=== PATIENT | female | born 1950 | race Caucasian/White ===

== ENCOUNTER → 2017-03-07 | Outpatient (CLI) | payer BC ==
--- NOTE | 2017-03-08 19:32 | Diagnostic Imaging Report ---
Digital mammogram bilateral screening with tomosynthesis. This study was compared to the prior exams of 02/27/2016, 02/12/2015, and 03/04/2014. At this time, there are no current complaints. The current study was also evaluated with a Computer Aided Detection (CAD) system. FINDINGS: The fibroglandular tissue in both breasts is heterogeneously dense. This does limit the sensitivity of this exam. When compared to the prior study, there does not appear to have been any significant change. There is no primary or secondary sign of malignancy noted. The 3D tomographic views also fail to show any sign of malignancy. IMPRESSION: There is no evidence of malignancy. ACR BI-RADS Category 1: Negative. Result letter will be mailed to the patient. Note: At least 10% of breast cancer is not imaged by mammography. Dictated on workstation # [id number]
== END ==
LOC: RAD 15:38
PROVIDERS: ATTEND Internal Medicine
DX: Z12.31 Encounter for screening mammogram for malignant neoplasm of breast (principal)
CPT/HCPCS: 77067

== ENCOUNTER 2018-05-10 05:32 | Outpatient (CLI) | payer MEDICARE ==
[~2018-05-10] VITALS: Ht 160 cm; Wt 58.5 kg
[2018-05-10] MEDS ORDERED: METH500T5 PO (11:58)
[2018-05-10] MEDS ORDERED: CALC600T12 PO (11:58)
[2018-05-10] MEDS ORDERED: CART1TAB4 PO (11:58)
[2018-05-10] MEDS ORDERED: LOSA1TAB26 PO (11:58)
[2018-05-10] MEDS ORDERED: MULT-884 PO (11:58)
[2018-05-10] MEDS ORDERED: [UNRECOGNIZED DRUG - CODE] VG (12:04)
[2018-05-10] MEDS ORDERED: CALC-227 PO (12:04)
== END 2018-05-10 12:08 | disposition home or self-care (01) ==
LOC: PREOP 05:32
PROVIDERS: ATTEND Obstetrics & Gynecology
DX: Z01.818 Encounter for other preprocedural examination (principal)

== ENCOUNTER 2018-05-16 06:19 | Day surgery (SDC) | payer MEDICARE ==
[~2018-05-16] VITALS: Ht 160 cm; Wt 58.5 kg
[~2018-05-16 06:19] MED LIST: CALC-227 PO; CALC600T12 PO; CART1TAB4 PO; LOSA1TAB26 PO; METH500T5 PO; MULT-884 PO; [UNRECOGNIZED DRUG - CODE] VG
--- OUTSIDE RECORDS SUMMARY | 2018-05-16 06:23 | XMS REPORT ---
Author Author CELIA ROGERS Organization [facility] Address [address] [place] [address] Care Team Providers Care Croze Machine Operator Name Role Phone GRAHAMRonda CELIA Unavailable PROBLEMS Type Condition ICD9-CM Code HOD17-OD Code Onset Dates Condition Status SNOMED Code Problem Need for prophylactic vaccination and inoculation, Influenza V04.81 Active 756290569 Problem ZOSTAVAX DX V05.8 Active 01201028 Problem DTAP TEST V06.1 Active ALLERGIES No Information ENCOUNTERS Encounter Location Date Diagnosis [facility] [id number] [place] [id number] Mar, Encounter for immunization Z23 [facility] [address] [phone] Apr, Encounter for immunization 23 [facility] [address] [phone] Apr, Encounter for immunization 23 [facility] [id number] [place] [phone] Apr, [facility] [id number] [place] [phone] Apr, [facility] [id number] [place] [phone] Apr, [facility] [address] [address] Apr, [facility] [id number] [place] [phone] Jul, [facility] [id number] [place] [phone] Apr, [facility] [address] 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
--- OUTSIDE RECORDS SUMMARY | 2018-05-16 06:23 | XMS REPORT | Continuity of Care Document ---
Author Author [facility] Address Unknown Phone Unavailable Allergies Active Description Code Type Severity Reaction Onset Reported/Identified Relationship to Patient Clinical Status Yes No Known Drug Allergies [id number] Drug Allergy Unknown N/A 01/29/2011 Medications There is no data. Problems Date Dx Coded Attending Type Code Diagnosis Diagnosed By 04/28/2012 V04.81 FLU DX (3 YRS AND ABOVE, IM) 04/28/2012 SOPHIE BUTTERFIELD, RAFA A V04.81 FLU DX (3 YRS AND ABOVE, IM) 04/28/2012 [facility] [employer], RAFA A V04.81 FLU DX (3 YRS AND ABOVE, IM) 08/09/2012 V05.8 ZOSTAVAX DX 08/09/2012 [facility] [employer], RAFA A V05.8 ZOSTAVAX DX 08/09/2012 [facility] [employer], RAFA A V05.8 ZOSTAVAX DX 05/04/2013 [facility] [employer], RAFA A V06.1 TDAP DX 05/04/2013 SOPHIE BUTTERFIELD, RAFA A V06.1 TDAP DX 03/04/2015 GALE SANTIAGO, VIJAY Beatty Ot V76.12 02/27/2016 Ot 455.0 INT HEMORRHOID W/O COMPL 02/27/2016 Ot 455.3 EXT HEMORRHOID W/O COMPL 02/27/2016 Ot 562.10 DIVERTICULOSIS COLON (W/O MENT OF HEMORR 02/27/2016 Ot 564.00 UNSPEC CONSTIPATION 02/27/2016 Ot 787.99 OTHER GI SYSTEM SYMPTOMS 02/27/2016 Ot V76.12 OTH SCREEN MAMMO-MALIGN NEOPLASM OF [place]ENS 02/27/2016 Ot V76.12 OTH SCREEN MAMMO-MALIGN NEOPLASM OF [place] 02/27/2016 MARINE HASKINS DO Ot V76.12 OTH SCREEN MAMMO-MALIGN NEOPLASM OF [place] 02/27/2016 HASKINS DO, MARINE C Ot 795.00 ABNORMAL GLANDULAR PAPANICOLAOU SMEAR OF 02/27/2016 DIVINE POON MARINE C Ot V49.81 ASYMPT POSTMENOPAUSAL STATUS (AGE-RELATE 02/27/2016 VIJAY BEASLEY MD Ot V76.12 OTH SCREEN MAMMO-MALIGN NEOPLASM OF [place] 02/27/2016 VIJAY BEASLEY MD Ot V76.12 OTH SCREEN MAMMO-MALIGN NEOPLASM OF [place] 03/01/2016 VIJAY BEASLEY MD Ot Z12.31 ENCNTR SCREEN MAMMOGRAM FOR MALIGNANT NE 03/01/2016 VIJAY BEASLEY MD Ot Z12.31 ENCNTR SCREEN MAMMOGRAM FOR MALIGNANT NE 03/04/2016 VIJAY BEASLEY MD Ot Z12.31 ENCNTR SCREEN MAMMOGRAM FOR MALIGNANT NE 03/12/2016 VIJAY BEASLEY MD Ot Z12.31 ENCNTR SCREEN MAMMOGRAM FOR MALIGNANT NE 03/07/2017 Ot V76.12 OTH SCREEN MAMMO-MALIGN NEOPLASM OF [place]ENS 03/07/2017 MAIRNE HASKINS DO Ot V76.12 OTH SCREEN MAMMO-MALIGN NEOPLASM OF [place] 03/07/2017 DIVINE POON MARINE C Ot 795.00 ABNORMAL GLANDULAR PAPANICOLAOU SMEAR OF 03/07/2017 JESSIE HASKINS DOA C Ot V49.81 ASYMPT POSTMENOPAUSAL STATUS (AGE-RELATE 03/07/2017 VIJAY BEASLEY MD Ot V76.12 OTH SCREEN MAMMO-MALIGN NEOPLASM OF [place] 03/07/2017 VIJAY BEASLEY MD Ot V76.12 OTH SCREEN MAMMO-MALIGN NEOPLASM OF [place]ENS 03/07/2017 VIJAY BEASLEY MD Ot Z12.31 ENCNTR SCREEN MAMMOGRAM FOR MALIGNANT NE 03/08/2017 VIJAY BEASLEY MD Ot Z12.31 ENCNTR SCREEN MAMMOGRAM FOR MALIGNANT NE 03/22/2017 VIJAY BEASLEY MD Ot Z12.31 ENCNTR SCREEN MAMMOGRAM FOR MALIGNANT NE 03/07/2018 MARINE HASKINS DO Ot V76.12 OTH SCREEN MAMMO-MALIGN NEOPLASM OF [place] 03/07/2018 DIVINE POON MARINE C Ot 795.00 ABNORMAL GLANDULAR PAPANICOLAOU SMEAR OF 03/07/2018 MARINE HASKINS DO Ot V49.81 ASYMPT POSTMENOPAUSAL STATUS (AGE-RELATE 03/07/2018 VIJAY BEASLEY MD Ot V76.12 OTH SCREEN MAMMO-MALIGN NEOPLASM OF [place] 03/07/2018 VIJAY BEASLEY MD Ot V76.12 OTH SCREEN MAMMO-MALIGN NEOPLASM OF [place] 03/07/2018 VIJAY BEASLEY MD Ot Z12.31 ENCNTR SCREEN MAMMOGRAM FOR MALIGNANT NE 03/07/2018 VIJAY BEASLEY MD, Ot Z12.31 ENCNTR SCREEN MAMMOGRAM FOR MALIGNANT NE 03/07/2018 HASKINS DO, MARINE C Ot V76.12 OTH SCREEN MAMMO-MALIGN NEOPLASM OF [place] 03/07/2018 HASKINS DO, MARINE C Ot 795.00 ABNORMAL GLANDULAR PAPANICOLAOU SMEAR OF 03/07/2018 HASKINS DO, MARINE C Ot V49.81 ASYMPT POSTMENOPAUSAL STATUS (AGE-RELATE 03/07/2018 VIJAY BEASLEY MD Ot V76.12 OTH SCREEN MAMMO-MALIGN NEOPLASM OF [place] 03/07/2018 VIJAY BEASLEY MD Ot V76.12 OTH SCREEN MAMMO-MALIGN NEOPLASM OF [place] 03/07/2018 VIJAY BEASLEY MD Ot Z12.31 ENCNTR SCREEN MAMMOGRAM FOR MALIGNANT NE 03/07/2018 VIJAY BEASLEY MD Ot Z12.31 ENCNTR SCREEN MAMMOGRAM FOR MALIGNANT NE 03/09/2018 HASKINS DO, MARINE C Ot V76.12 OTH SCREEN MAMMO-MALIGN NEOPLASM OF [place] 03/09/2018 HASKINS DO, MARINE C Ot 795.00 ABNORMAL GLANDULAR PAPANICOLAOU SMEAR OF 03/09/2018 HASKINS DO MARINE C Ot V49.81 ASYMPT POSTMENOPAUSAL STATUS (AGE-RELATE 03/09/2018 VIJAY BEASLEY MD Ot V76.12 OTH SCREEN MAMMO-MALIGN NEOPLASM OF [place] 03/09/2018 VIJAY BEASLEY MD Ot V76.12 OTH SCREEN MAMMO-MALIGN NEOPLASM OF [place] 03/09/2018 VIJAY BEASLEY MD Ot Z12.31 ENCNTR SCREEN MAMMOGRAM FOR MALIGNANT NE 03/09/2018 VIJAY BEASLEY MD, Ot Z12.31 ENCNTR SCREEN MAMMOGRAM FOR MALIGNANT NE 04/05/2018 VIJAY BEASLEY MD, Ot Z12.31 ENCNTR SCREEN MAMMOGRAM FOR MALIGNANT NE Procedures There is no data. Results There is no data. Encounters ACCT No. Visit Date/Time Discharge Status Pt. Type Provider Facility Loc./Unit Complaint [id number] 04/26/2014 14:31:00 04/26/2014 23:59:59 CLS Outpatient RAFA BARRIOS APRN [id number] 05/04/2013 14:49:00 05/04/2013 23:59:59 CLS Outpatient RAFA BARRIOS APRN [id number] 08/09/2012 09:01:00 08/09/2012 23:59:59 CLS Outpatient [id number] 08/09/2012 11:36:40 RECURRING [id number] 05/10/2018 05:32:00 05/10/2018 12:08:00 DIS Outpatient MARINE HASKINS DO [facility] PREOP HYSTEROSCOPY Jaci Mckeon [id number] 03/09/2018 10:57:00 03/09/2018 23:59:59 CLS Outpatient VIJAY BEASLEY MD [facility] RAD SCREENING [id number] 03/07/2017 15:38:00 03/07/2017 23:59:59 CLS Outpatient VIJAY BEASLEY MD [facility] RAD SCREENING [id number] 02/27/2016 09:39:00 02/27/2016 23:59:59 CLS Outpatient VIJAY BEASLEY MD [facility] RAD SCREENING [id number] 02/12/2015 08:01:00 02/12/2015 23:59:59 CLS Outpatient VIJAY BEASLEY MD [facility] RAD SCREENING [id number] 03/04/2014 10:06:00 03/04/2014 23:59:59 CLS Outpatient VIJAY BEASLEY MD [facility] RAD ROUTINE [id number] 04/20/2013 09:22:00 04/20/2013 23:59:59 CLS Outpatient MARINE HASKINS DO [facility] RAD ATYPICAL GLANDUARY CELLS, MENOPAUSE [id number] 03/02/2013 11:04:00 03/02/2013 23:59:59 CLS Outpatient MARINE HASKINS DO [facility] RAD SCREENING [id number] 01/27/2012 09:00:00 Document Registration [id number] 01/29/2011 05:38:00 Document Registration [id number] 01/25/2011 09:43:00 Document Registration [email or web address] 02/12/2015 08:01:58 ACT Document Registration
--- OUTSIDE RECORDS SUMMARY | 2018-05-16 06:23 | XMS REPORT ---
Author Author RAFA BARRIOS Organization [employer] Address Unknown Phone Unavailable Care Team Providers Care Spot Washer Name Role Phone RAFA BARRIOS CP Unavailable Allergies No Known Allergies Problems Problem Type Condition Code Onset Dates Condition Status Problem DTAP TEST V06.1 Active Problem ZOSTAVAX DX V05.8 Active Problem Need for prophylactic vaccination and inoculation, Influenza V04.81 Active Assessment Encounter for immunization Z23 Active Medications No Known Medications Procedures Procedure Coding System Code Date SINGLE IMMUNIZATION ADMIN CPT-4 85756 Apr 19, 2016 FLUARIX QUAD P-FREE 3 AND UP .50 2015 CPT-4 95138 Apr 19, 2016 Results No Known Results Immunizations Vaccine Administration Date FLUARIX QUAD P-FREE 3 AND UP .50 2015Apr 19, 2016 Summary Purpose [employer] Submission
--- OUTSIDE RECORDS SUMMARY | 2018-05-16 06:23 | XMS REPORT ---
Author Author RAFA BARRIOS Organization [employer] Address Unknown Phone Unavailable Care Team Providers Care Inspector Optical Instrument Name Role Phone RAFA BARRIOS CP Unavailable Allergies No Known Allergies Problems Problem Type Condition Code Onset Dates Condition Status Problem DTAP TEST V06.1 Active Problem ZOSTAVAX DX V05.8 Active Problem Need for prophylactic vaccination and inoculation, Influenza V04.81 Active Assessment Encounter for immunization Z23 Active Medications No Known Medications Procedures Procedure Coding System Code Date SINGLE IMMUNIZATION ADMIN CPT-4 87340 May 06, 2015 FLUARIX QUAD (3 & UP)-GSK-2014 CPT-4 12113 May 06, 2015 Results No Known Results Immunizations Vaccine Administration Date FLUARIX QUAD (3 & UP)-GSK-2014May 06, 2015 Summary Purpose [employer] Submission
[2018-05-16] MEDS ORDERED: LACTATED RINGERS 1,000 ML IV PRN (06:28)
[2018-05-16] MEDS ORDERED: ceFAZolin INJECTION 1,000 MG in NS (IVPB) 50 ML IV ONE (06:30)
[2018-05-16 06:44] VITALS: BP 144/64
[2018-05-16] MEDS ORDERED: SEVOFLURANE (ULTANE) 15 ML INHAL SOLN ONE (06:55)
[2018-05-16] MEDS ORDERED: DEXAMETHASONE 10 MG/ML (DECADRON) 1 ML VIAL ONE (06:56)
[2018-05-16] MEDS ORDERED: LIDOCAINE PF 2% 5 ML (XYLOCAINE) VIAL ONE (06:56)
[2018-05-16] MEDS ORDERED: MIDAZOLAM 2 MG/2 ML (VERSED) VIAL ONE (06:56)
[2018-05-16] MEDS ORDERED: ONDANSETRON 4 MG/2 ML (SDV) Z0FRAN ONE (06:56)
[2018-05-16] MEDS ORDERED: proPOfol 200 MG/20 ML (DIPRIVAN) VIAL IV ONE (06:56)
[2018-05-16] MEDS ORDERED: fentaNYL INJECTION 100 MCG/2 ML AMP ONE (06:57)
[2018-05-16] MEDS ORDERED: CATHETER FLUSH 10 ML SYR IV PRN (07:00)
--- NOTE | 2018-05-16 07:30 | Progress Note-Pre Operative ---
Pre-Operative Progress Note H&P Reviewed The H&P was reviewed, patient examined and no changes noted. Date Seen by Provider: May 16, 2018 Time Seen by Provider: 07:20 Date H&P Reviewed: May 16, 2018 Time H&P Reviewed: 07:15 Pre-Operative Diagnosis: post menopausal bleeding, cervical stenosis MARINE HASKINS DO May 16, 2018 07:30
[2018-05-16] MEDS ORDERED: KETOROLAC 30 MG/ML VIAL ONE (08:06)
--- NOTE | 2018-05-16 08:20 | Operative Report ---
Operative Report Date of Procedure/Surgery May 16, 2018 Surgeon (s) MARINE HASKINS DO Valve Machine Operator (s): Abdullahi Martinez, MS III Post-Operative Diagnosis Endometrial polyp Procedure Performed hysteroscopy, dilation and curettage Description of Procedure Anesthesia Type: General Estimated blood loss (mL): minimal Specimen(s) collected/removed endometrial curettings, endometrial polyp Description of the Procedure With informed consent the patient was taken to the operating room where general anesthesia was found to be adequate. She was prepped and draped in the usual sterile fashion in the dorsolithotomy position. The speculum was placed in the vagina and the cervix was grasped with a tenaculum. The cervix was known to be stenotic. I made an incision in the os with an 11 blade and was then able to gently dilate the cervix with william dilators. I then was able to sound the uterus to 6 cm. A hysteroscope was done and revealed the above mentioned findings. The underlying endometrium was atrophic. I removed the hysteroscope and then used a polyp forceps to remove the polyp which was sent for pathology. I then did a curette to make sure that all tissue was removed. A follow up hysteroscope revealed that the tissue was completely removed. I removed the instruments from the cervix and the vagina. There was some bleeding from the tenaculum site that was controlled with pressure. The patient was awakened and taken to the recovery room in a stable condition. Instrument and sponge counts were correct times two. Findings of the Procedure large endometrial polyp, atrophic endometrium Allergies and Home Medications Allergies Coded Allergies: No Known Drug Allergies (Unverified , 01/29/11) Home Medications Calcium Carbonate/Vitamin D3 1 Each Tablet, 1 EACH PO BID, (Reported) Cartilage/Collagen/Bor/Hyalur 1 Each Tablet, 1 EACH PO DAILY, (Reported) Losartan/Hydrochlorothiazide 1 Each Tablet, 1 EACH PO DAILY, (Reported) Methylcellulose 500 Mg Tablet, 1,000 MG PO DAILY, (Reported) TAKE 2 (500MG) TABS Multivits,Ca,Minerals/Iron/FA 1 Each Tablet, 1 EACH PO DAILY, (Reported) Polycarbophil 6.7 Gm Gel.pf.danielito, 6.7 GM VG twice a week, (Reported) Patient Home Medication List Home Medication List Reviewed: Yes Copy Copies To 1: VIJAY BEASLEY MD, ANGELA C DO May 16, 2018 08:20
[2018-05-16] MEDS ORDERED: ACHD5005 PO (08:23)
[2018-05-16] MEDS ORDERED: IBUP-1773 PO (08:23)
[2018-05-16] MEDS ORDERED: morphine INJ 10 MG/ML 1ML (SYR OR VIAL) ONE (08:24)
--- NOTE | 2018-05-16 08:25 | Discharge Inst-Women's Service ---
Discharge Inst-Women's Serv Depart Medication/Instructions New, Converted or Re-Newed RX: RX on Chart Instructions may have spotting, light bleeding for up to 7 days expect cramping for a few days Final Diagnosis post menopausal bleeding endometrial polyp Consults/Follow Up Additional Follow Up: Yes (1 week for post op visit with Dr. Haskins) Activity Activity: Activity as Tolerated Driving Instructions: No Driving for 24 Hours NO SMOKING: NO SMOKING Nothing Inside Vagina: No Douching, No [place], No Tampons Diet Discharge Diet: No Restrictions Symptoms to Report to : Bleeding Excessive, Pain Increased, Fever Over 101 Degrees F, Vaginal Bleeding Increase, Cramps in Feet or Legs, Vaginal Discharge Foul For Any Problems or Questions: Contact Your Physician MARINE HASKINS DO May 16, 2018 08:25
[2018-05-16] MEDS ORDERED: KETOROLAC 30 MG/ML VIAL IVP ONE (08:30)
[2018-05-16] MEDS ORDERED: morphine INJ 10 MG/ML 1ML (SYR OR VIAL) IVP ONE (08:30)
[2018-05-16] MEDS ORDERED: ONDANSETRON 4 MG/2 ML (SDV) Z0FRAN IVP PRN (08:30)
[2018-05-16] MEDS ORDERED: MEPERIDINE (DEMEROL) INJ 50 MG/ML IVP ONE (08:30)
[2018-05-16] MEDS ORDERED: KETOROLAC 15 MG/ML VIAL IVP PRN (08:30)
[2018-05-16 09:15] VITALS: BP 133/58
[2018-05-16 09:45] VITALS: BP 131/58
[2018-05-16 10:15] VITALS: BP 123/59
[2018-05-16] MEDS ORDERED: ONDANSETRON 4 MG (ZOFRAN) ORAL DISSOLVE TAB PO ONE (10:30)
[2018-05-16] MEDS ORDERED: ONDANSETRON 4 MG (ZOFRAN) ORAL DISSOLVE TAB ONE (10:33)
--- NOTE | 2018-05-16 13:17 | Anesthesia-General Post-Op ---
General Patient Condition Mental Status/LOC: Same as Preop Cardiovascular: Satisfactory Nausea/Vomiting: Absent Respiratory: Satisfactory Pain: Controlled Complications: Absent Post Op Complications Complications None Follow Up Care/Instructions Patient Instructions None needed. Anesthesia/Patient Condition Patient Condition Patient is doing well, no complaints, stable vital signs, no apparent adverse anesthesia problems. No complications reported per nursing. ANIL GUPTA CRNA May 16, 2018 13:17
== END 2018-05-16 10:50 | disposition home or self-care (01) ==
LOC: SDC 06:19
PROVIDERS: ATTEND Obstetrics & Gynecology
DX: N95.0 Postmenopausal bleeding (principal); N88.2 Stricture and stenosis of cervix uteri; N84.0 Polyp of corpus uteri; I10 Essential (primary) hypertension; K21.9 Gastro-esophageal reflux disease without esophagitis; Z79.899 Other long term (current) drug therapy
CPT/HCPCS: 87081; 88305; 94664

== ENCOUNTER → 2019-03-12 | Outpatient (CLI) | payer MEDICARE ==
[~2019-03-12] MED LIST changes: +ACHD5005 PO; +IBUP-1773 PO
--- NOTE | 2019-03-12 22:33 | Diagnostic Imaging Report ---
INDICATION: Screening The current study was also evaluated with a Computer Aided Detection (CAD) system. 3-D Tomographic imaging was also performed. Comparison is made with prior examination from 03/09/18, 03/07/2017, and 02/27/2016 FINDINGS: There are scattered fibroglandular densities bilaterally. There is a cluster of slightly pleomorphic microcalcifications in the upper outer left breast. There is no dominant mass or spiculated lesion. The skin, nipples and axilla are unremarkable. IMPRESSION: Cluster of slightly pleomorphic microcalcifications in the upper outer left breast. These should be further characterized with magnification compression views. ACR BI-RADS Category 0: Incomplete. (Needs additional imaging evaluation). Result letter will be mailed to the patient. Note: At least 10% of breast cancer is not imaged by mammography. Dictated by: Dictated on workstation # [id number]
== END ==
LOC: RAD 09:56
PROVIDERS: ATTEND Nurse Practitioner
DX: Z12.31 Encounter for screening mammogram for malignant neoplasm of breast (principal); R92.0 Mammographic microcalcification found on diagnostic imaging of breast
CPT/HCPCS: 77067

== ENCOUNTER → 2019-03-21 | Outpatient (CLI) | payer MEDICARE ==
--- NOTE | 2019-03-21 18:49 | Diagnostic Imaging Report ---
INDICATION: Left breast calcifications. Patient presents for additional views. COMPARISON: Correlation is made with recent screening study from 03/12/2019 as well as screening studies from 03/09/2018 and 03/07/2017. EXAMINATION: Unilateral left 2D and 3D diagnostic mammography was performed including magnification CC and ML views as well as conventional 90 degree lateral views. FINDINGS: Calcifications in the upper outer left breast are noted at posterior depth. The majority of the calcifications appear to be punctate. Calcifications do not appear to be tightly clustered. No associated soft tissue mass is seen. IMPRESSION: Left breast calcifications in the upper outer aspect, likely benign. Even so, followup left mammogram in six months is recommended to confirm stability. ACR BI-RADS Category 3: Probably benign findings. Result letter will be mailed to the patient. Note: At least 10% of breast cancer is not imaged by mammography. Dictated by: Dictated on workstation # [id number]
== END ==
LOC: RAD 12:58
PROVIDERS: ATTEND Internal Medicine
DX: R92.1 Mammographic calcification found on diagnostic imaging of breast (principal)

== ENCOUNTER → 2019-09-28 | Outpatient (CLI) | payer MEDICARE ==
--- NOTE | 2019-09-28 13:14 | Diagnostic Imaging Report ---
INDICATION: 6 month followup left breast calcifications. COMPARISON: 03/12/2019 and 03/09/2018. TECHNIQUE: Unilateral left 2D and 3D diagnostic mammography was performed with CAD. FINDINGS: There are scattered fibroglandular densities in the left breast. There appears to be some increasing density in the left breast upper outer aspect approximately 7 to 8 cm from the nipple. This is at the site of previously noted calcifications. The calcifications also appear to be slightly more numerous. This is concerning for a developing mass. Ultrasound of this area is recommended. No other abnormalities are seen. IMPRESSION: Increasing density in the upper outer left breast since the prior mammograms. In addition, there appear to be some increasing calcifications. Further evaluation of this area with ultrasound is recommended and will be performed today. ACR BI-RADS Category 0: Incomplete. (Needs additional imaging evaluation). Result letter will be mailed to the patient. Note: At least 10% of breast cancer is not imaged by mammography. Dictated by: Dictated on workstation # [id number]
--- NOTE | 2019-09-28 14:14 | Diagnostic Imaging Report ---
INDICATION: Left breast density. COMPARISON: Correlation is made with diagnostic mammogram earlier the same day. FINDINGS: Sonographic interrogation of the upper and outer aspect of the left breast was performed. There is a hypoechoic somewhat lobulated solid-appearing mass at the 1 o'clock location, 7 cm from the nipple. This measures 17 mm x 12 mm x 10 mm. There does appear to be some internal vascularity. Punctate echogenicities are noted as well, likely representing microcalcifications. No enlarged left axillary lymph nodes are identified. IMPRESSION: Hypoechoic solid mass at the 1 o'clock location of the left breast, 7 cm from the nipple. This corresponds to the density noted mammographically. This is concerning for small breast neoplasm. Tissue sampling is recommended. This would be amenable to ultrasound-guided core biopsy. Results and recommendations were discussed with the patient by myself at the completion of the study. ACR BI-RADS Category 4: Suspicious abnormality. Dictated by: Dictated on workstation # [id number]
== END ==
LOC: RAD 12:52
PROVIDERS: ATTEND Internal Medicine
DX: N63.20 Unspecified lump in the left breast, unspecified quadrant (principal); R92.2 Inconclusive mammogram
CPT/HCPCS: 76642

== ENCOUNTER → 2019-10-04 | Outpatient (CLI) | payer MEDICARE ==
[~2019-10-04] VITALS: Ht 160 cm; Wt 52.7 kg
[~2019-10-04] MED LIST changes: +LIDOCAINE 1% INJ 20 ML 20 ML VIAL INJ ONE
--- NOTE | 2019-10-04 14:14 | Diagnostic Imaging Report ---
INDICATION: Left breast mass. Patient presents for ultrasound guided biopsy. The patient was brought to the procedure room and placed on the table in the supine position. Ultrasound imaging of the left breast was performed to evaluate appropriate entry site. The left breast was then prepped and draped in the usual sterile fashion. A small amount of 1% lidocaine was utilized for local anesthesia. [employer], 10-gauge vacuum-assisted device was advanced and placed with its biopsy chamber along the posterior margin of the lesion. A total of approximately 5 core biopsies were then obtained. Device was removed. A marker clip was then deployed within the lesion. Hemostasis was obtained using manual compression. Patient tolerated the procedure well and was sent for a post procedure mammogram in satisfactory condition. IMPRESSION: Successful ultrasound-guided core biopsy of the mass at the 1:00 location of the left breast, 7 cm from the nipple, utilizing vacuum-assisted core biopsy device. Pathology results are currently pending. Dictated by: Dictated on workstation # [id number]
--- NOTE | 2019-10-04 16:29 | Diagnostic Imaging Report ---
INDICATION: Left breast mass, status post biopsy. EXAMINATION: Unilateral left 2D CC and ML mammography was performed after patient underwent breast biopsy. FINDINGS: Spiculated density in the upper outer left breast is noted. There is a marker clip along the outer margin of the lesion. There are internal microcalcifications. IMPRESSION: Marker lesion is noted along the margin of the spiculated mass in the upper-outer left breast. Dictated by: Dictated on workstation # [id number]
== END ==
LOC: RAD 12:19
PROVIDERS: ATTEND Internal Medicine
DX: C50.412 Malignant neoplasm of upper-outer quadrant of left female breast (principal)
CPT/HCPCS: 19083

== ENCOUNTER 2019-10-17 08:41 | Outpatient (CLI) | payer MEDICARE ==
[~2019-10-17] VITALS: Ht 160 cm; Wt 51.8 kg
[~2019-10-17 08:41] MED LIST changes: -LIDOCAINE 1% INJ 20 ML 20 ML VIAL INJ ONE
[2019-10-18] MEDS ORDERED: HYDR-83 PO (10:59)
== END 2019-10-17 13:40 ==
LOC: PREOP 08:41
PROVIDERS: ATTEND Surgery
DX: Z01.818 Encounter for other preprocedural examination (principal)

== ENCOUNTER 2019-12-05 08:28 | Outpatient (RCR) | payer MEDICARE ==
[~2019-12-05 08:28] MED LIST changes: +HYDR-83 PO
== END 2020-01-09 | disposition home or self-care (01) ==
LOC: ONC 08:28
PROVIDERS: ATTEND Internal Medicine Hematology & Oncology
DX: C50.412 Malignant neoplasm of upper-outer quadrant of left female breast (principal); I10 Essential (primary) hypertension; Z90.49 Acquired absence of other specified parts of digestive tract
CPT/HCPCS: 99204; 99211; 99213; 99214

== ENCOUNTER 2020-03-13 15:52 | Outpatient (RCR) | payer MEDICARE ==
[2020-01-25 13:32] LABS: BASOPHILS % (AUTO) 0 % (0-10); EOSINOPHILS # (AUTO) 0.1 10^3/uL (0.0-0.3); EOSINOPHILS % (AUTO) 1 % (0-10); HEMATOCRIT 42 % (35-52); HEMOGLOBIN 13.6 G/DL (11.5-16.0); LYMPHOCYTES % (AUTO) 30 % (12-44); MEAN CORPUSCULAR HEMOGLOBIN 31 PG (25-34); MEAN CORPUSCULAR HGB CONC 32 G/DL (32-36); MEAN CORPUSCULAR VOLUME 94 FL (80-99); MONOCYTES # (AUTO) 0.4 X 10^3 (0.0-1.0); MONOCYTES % (AUTO) 6 % (0-12); NEUTROPHILS # (AUTO) 4.2 X 10^3 (1.8-7.8); NEUTROPHILS % (AUTO) 63 % (42-75); PLATELET COUNT 235 10^3/uL (130-400); WHITE BLOOD COUNT 6.6 10^3/uL (4.3-11.0)
[2020-01-25 13:58] LABS: ALANINE AMINOTRANSFERASE 18 U/L (0-55); ALBUMIN 4.4 GM/DL (3.2-4.5); ALKALINE PHOSPHATASE 96 U/L (40-136); BILIRUBIN,TOTAL 0.7 MG/DL (0.1-1.0); BUN/CREATININE RATIO 21; CALCIUM 9.9 MG/DL (8.5-10.1); CARBON DIOXIDE 31 MMOL/L (21-32); CHLORIDE 100 MMOL/L (98-107); CREATININE SERUM 0.73 MG/DL (0.60-1.30); GFR ESTIMATED > 60; GLUCOSE 119 MG/DL (70-105); SODIUM 140 MMOL/L (135-145); TOTAL PROTEIN 7.4 GM/DL (6.4-8.2)
[~2020-03-13 15:52] MED LIST changes: -CALC600T12 PO; +CLC600T PO; -HYDR-83 PO
== END 2020-04-03 11:52 | disposition home or self-care (01) ==
LOC: ONC 15:52
PROVIDERS: ATTEND Internal Medicine Hematology & Oncology
DX: C50.919 Malignant neoplasm of unspecified site of unspecified female breast (principal); I10 Essential (primary) hypertension; Z98.890 Other specified postprocedural states; Z79.899 Other long term (current) drug therapy; Z98.51 Tubal ligation status; Z90.49 Acquired absence of other specified parts of digestive tract
CPT/HCPCS: 80053; 85025; G0463; 99213

== ENCOUNTER → 2020-06-16 | Outpatient (CLI) | payer MEDICARE ==
--- NOTE | 2020-06-16 14:02 | Diagnostic Imaging Report ---
INDICATION: Lump in the left breast near surgical scar. Patient does have a history of breast cancer. COMPARISON: Correlation is made with the diagnostic mammogram from earlier this same day. FINDINGS: Sonographic interrogation of the area of palpable lump in the upper left breast was performed. There is a cyst at the 12 o'clock location 2 cm from the nipple near the surgical scar measuring 9 mm x 6 mm x 6 mm. This likely accounts for the oil cyst noted on the mammogram. No solid masses are seen. IMPRESSION: Simple appearing cyst in the upper left breast at the area of palpable abnormality. The patient may return to routine annual screening mammography. ACR BI-RADS Category 2: Benign findings. Result letter will be mailed to the patient. Note: At least 10% of breast cancer is not imaged by mammography. Dictated by: Dictated on workstation # [id number]
--- NOTE | 2020-06-16 14:03 | Diagnostic Imaging Report ---
INDICATION: Left breast carcinoma. Patient has a palpable lump in the left breast. COMPARISON: Correlation is made with the prior mammograms dating back to 2017. TECHNIQUE: 2D and 3D bilateral diagnostic mammography was performed with CAD. A BB marker was placed at the area of palpable abnormality in the upper left breast. FINDINGS: Post-therapeutic changes in the left breast are noted. There is an oil cyst at the area of palpable abnormality in the upper left breast. No other masses are seen. There are no suspicious calcifications. The right breast is unremarkable. The axillae are unremarkable. IMPRESSION: Probable oil cyst at the area of palpable abnormality in the upper left breast near the surgical site. Confirmation with ultrasound is recommended and will be performed today. ACR BI-RADS Category 0: Incomplete. (Needs additional imaging evaluation). Result letter will be mailed to the patient. Note: At least 10% of breast cancer is not imaged by mammography. Dictated by: Dictated on workstation # [id number]
== END ==
LOC: RAD 12:20
PROVIDERS: ATTEND Internal Medicine Hematology & Oncology
DX: C50.412 Malignant neoplasm of upper-outer quadrant of left female breast (principal)
CPT/HCPCS: 76642; 77066; G0279; 77062

== ENCOUNTER 2020-06-26 10:54 | Outpatient (RCR) | payer MEDICARE ==
[2020-04-04 11:03] LABS: BASOPHILS % (AUTO) 0 % (0-10); EOSINOPHILS # (AUTO) 0.1 10^3/uL (0.0-0.3); EOSINOPHILS % (AUTO) 1 % (0-10); HEMATOCRIT 42 % (35-52); HEMOGLOBIN 13.7 G/DL (11.5-16.0); LYMPHOCYTES # (AUTO) 2.3 X 10^3 (1.0-4.0); LYMPHOCYTES % (AUTO) 36 % (12-44); MEAN CORPUSCULAR HEMOGLOBIN 31 PG (25-34); MEAN CORPUSCULAR HGB CONC 33 G/DL (32-36); MEAN CORPUSCULAR VOLUME 94 FL (80-99); MEAN PLATELET VOLUME 10.7 FL (7.4-10.4); MONOCYTES # (AUTO) 0.4 X 10^3 (0.0-1.0); MONOCYTES % (AUTO) 6 % (0-12); NEUTROPHILS # (AUTO) 3.8 X 10^3 (1.8-7.8); NEUTROPHILS % (AUTO) 58 % (42-75); PLATELET COUNT 199 10^3/uL (130-400); WHITE BLOOD COUNT 6.6 10^3/uL (4.3-11.0)
[2020-06-26 11:07] LABS: BASOPHILS % (AUTO) 1 % (0-10); EOSINOPHILS # (AUTO) 0.1 10^3/uL (0.0-0.3); EOSINOPHILS % (AUTO) 1 % (0-10); HEMATOCRIT 42 % (35-52); HEMOGLOBIN 13.5 g/dL (11.5-16.0); LYMPHOCYTES # (AUTO) 2.3 10^3/uL (1.0-4.0); LYMPHOCYTES % (AUTO) 39 % (12-44); MEAN CORPUSCULAR HEMOGLOBIN 31 pg (25-34); MEAN CORPUSCULAR HGB CONC 32 g/dL (32-36); MEAN CORPUSCULAR VOLUME 96 fL (80-99); MEAN PLATELET VOLUME 10.5 fL (9.0-12.2); MONOCYTES # (AUTO) 0.3 10^3/uL (0.0-1.0); MONOCYTES % (AUTO) 6 % (0-12); NEUTROPHILS # (AUTO) 3.1 10^3/uL (1.8-7.8); NEUTROPHILS % (AUTO) 54 % (42-75); PLATELET COUNT 230 10^3/uL (130-400); WHITE BLOOD COUNT 5.8 10^3/uL (4.3-11.0)
[2020-06-26 11:27] LABS: ALANINE AMINOTRANSFERASE 29 U/L (0-55); ALBUMIN 4.4 GM/DL (3.2-4.5); ALKALINE PHOSPHATASE 79 U/L (40-136); BILIRUBIN,TOTAL 0.9 MG/DL (0.1-1.0); BUN/CREATININE RATIO 21; CARBON DIOXIDE 32 MMOL/L (21-32); CHLORIDE 101 MMOL/L (98-107); CREATININE SERUM 0.72 MG/DL (0.60-1.30); GFR ESTIMATED > 60; GLUCOSE 108 MG/DL (70-105); POTASSIUM 3.8 MMOL/L (3.6-5.0); SODIUM 140 MMOL/L (135-145); TOTAL PROTEIN 7.3 GM/DL (6.4-8.2)
== END 2020-07-03 | disposition home or self-care (01) ==
LOC: ONC 10:54
PROVIDERS: ATTEND Internal Medicine Hematology & Oncology
DX: C50.412 Malignant neoplasm of upper-outer quadrant of left female breast (principal); I10 Essential (primary) hypertension; Z98.890 Other specified postprocedural states; Z79.899 Other long term (current) drug therapy; Z98.51 Tubal ligation status; Z90.49 Acquired absence of other specified parts of digestive tract; Z92.21 Personal history of antineoplastic chemotherapy; Z92.3 Personal history of irradiation; Z90.12 Acquired absence of left breast and nipple
CPT/HCPCS: 85025; G0463; 80053; 99213

== ENCOUNTER → 2020-09-23 | Outpatient (CLI) | payer MEDICARE ==
--- NOTE | 2020-09-23 10:21 | Diagnostic Imaging Report ---
INDICATION: Postmenopausal female. COMPARISON: 12/23/2008 FINDINGS: AP Spine L2-L4: [BMD (g/cm2): 1.131] [T-Score: -0.6] [Z-Score: 1.5] [BMD Previous: 1.187] [BMD % Change: -4.7] LT Hip Neck: [BMD (g/cm2): 0.740] [T-Score: -2.1] [Z-Score: -0.3] LT Hip Total: [BMD (g/cm2):0.832] [T-Score:-1.4] [Z-Score: 0.3] [BMD Previous: 0.927] [BMD % Change: -10.2] RT Hip Neck: [BMD (g/cm2):0.734] [T-Score:-2.2] [Z-Score:-0.3] RT Hip Total: [BMD (g/cm2):0.776] [T-score:-1.8] [Z-Score:-0.2] [BMD Previous:0.847] [BMD % Change:-8.4] World Health Organization criteria for BMD interpretation classify patients as Normal (T-score at or above -1.0), Osteopenic (T-score between -1.0 and -2.5) or Osteoporotic (T-score at or below -2.5). LIMITATIONS AND MODIFICATION: None. FRACTURE RISK (FRAX SCORE): The ten year probability of (%): Major Osteoporotic Fracture: [11.5] Hip Fracture: [2.4] IMPRESSION: 1. Osteopenia (Low bone mass). 2. Bone mineral density has decreased by a statistically significant amount, as detailed above. 3. See below National Osteoporosis Foundation guidelines on when to potentially initiate pharmacologic therapy. Based on the National Osteoporosis Foundation Guidelines, pharmacologic treatment should be initiated in any of the following, unless clinical conditions suggest otherwise: * Any patient with prior fragility fracture of the hip or vertebrae. A spine fracture indicates 5X risk for subsequent spine fracture and 2X risk for subsequent hip fracture. * Osteoporosis (T-score <-2.5). * Postmenopausal women and men age 50 and older with low bone mass/osteopenia (T-score between -1.0 and -2.5) by DXA and 10-year major osteoporotic fracture greater than 20% or a 10-year probability of hip fracture greater than 3%. These fracture risks are supplied above in the FRAX score, if applicable. * Clinician judgement and/or patient preferences may indicate treatment for people with 10-year fracture probabilities above or below these levels. Dictated by: Dictated on workstation # [id number]
== END ==
LOC: RAD 09:41
PROVIDERS: ATTEND Nurse Practitioner Adult Health
DX: M85.88 Other specified disorders of bone density and structure, other site (principal); Z78.0 Asymptomatic menopausal state
CPT/HCPCS: 77080

== ENCOUNTER → 2020-09-25 | Outpatient (CLI) | payer MEDICARE ==
[2020-09-25 10:59] LABS: BASOPHILS % (AUTO) 1 % (0-10); EOSINOPHILS # (AUTO) 0.1 10^3/uL (0.0-0.3); EOSINOPHILS % (AUTO) 1 % (0-10); HEMATOCRIT 42 % (35-52); HEMOGLOBIN 13.4 g/dL (11.5-16.0); LYMPHOCYTES # (AUTO) 2.3 10^3/uL (1.0-4.0); LYMPHOCYTES % (AUTO) 41 % (12-44); MEAN CORPUSCULAR HEMOGLOBIN 31 pg (25-34); MEAN CORPUSCULAR HGB CONC 32 g/dL (32-36); MEAN CORPUSCULAR VOLUME 97 fL (80-99); MEAN PLATELET VOLUME 10.3 fL (9.0-12.2); MONOCYTES # (AUTO) 0.3 10^3/uL (0.0-1.0); MONOCYTES % (AUTO) 6 % (0-12); NEUTROPHILS # (AUTO) 2.9 10^3/uL (1.8-7.8); NEUTROPHILS % (AUTO) 52 % (42-75); PLATELET COUNT 243 10^3/uL (130-400); WHITE BLOOD COUNT 5.6 10^3/uL (4.3-11.0)
[2020-09-25 11:28] LABS: ALANINE AMINOTRANSFERASE 23 U/L (0-55); ALBUMIN 4.5 GM/DL (3.2-4.5); ALKALINE PHOSPHATASE 83 U/L (40-136); BILIRUBIN,TOTAL 0.9 MG/DL (0.1-1.0); BUN/CREATININE RATIO 22; CALCIUM 9.8 MG/DL (8.5-10.1); CARBON DIOXIDE 29 MMOL/L (21-32); CHLORIDE 100 MMOL/L (98-107); CREATININE SERUM 0.73 MG/DL (0.60-1.30); GFR ESTIMATED > 60; GLUCOSE 103 MG/DL (70-105); POTASSIUM 3.9 MMOL/L (3.6-5.0); SODIUM 141 MMOL/L (135-145); TOTAL PROTEIN 7.4 GM/DL (6.4-8.2)
== END ==
LOC: ONC 10:46
PROVIDERS: ATTEND Internal Medicine Hematology & Oncology
DX: C50.412 Malignant neoplasm of upper-outer quadrant of left female breast (principal); I10 Essential (primary) hypertension; Z79.890 Hormone replacement therapy; Z90.12 Acquired absence of left breast and nipple; Z78.0 Asymptomatic menopausal state
CPT/HCPCS: 80053; 85025; G0463; 99213

== ENCOUNTER → 2021-04-02 | Outpatient (CLI) | payer MEDICARE ==
[~2021-04-02] MED LIST changes: +CALC600T91 PO; -CLC600T PO
[2021-04-02 11:05] LABS: BASOPHILS # (AUTO) 0.1 10^3/uL (0.0-0.1); BASOPHILS % (AUTO) 1 % (0-10); EOSINOPHILS # (AUTO) 0.1 10^3/uL (0.0-0.3); EOSINOPHILS % (AUTO) 1 % (0-10); HEMATOCRIT 42 % (35-52); HEMOGLOBIN 13.4 g/dL (11.5-16.0); LYMPHOCYTES # (AUTO) 2.5 10^3/uL (1.0-4.0); LYMPHOCYTES % (AUTO) 41 % (12-44); MEAN CORPUSCULAR HEMOGLOBIN 31 pg (25-34); MEAN CORPUSCULAR HGB CONC 32 g/dL (32-36); MEAN CORPUSCULAR VOLUME 97 fL (80-99); MEAN PLATELET VOLUME 10.2 fL (9.0-12.2); MONOCYTES # (AUTO) 0.4 10^3/uL (0.0-1.0); MONOCYTES % (AUTO) 6 % (0-12); NEUTROPHILS # (AUTO) 3.2 10^3/uL (1.8-7.8); NEUTROPHILS % (AUTO) 52 % (42-75); PLATELET COUNT 250 10^3/uL (130-400); WHITE BLOOD COUNT 6.2 10^3/uL (4.3-11.0)
[2021-04-02 11:25] LABS: ALBUMIN 4.5 GM/DL (3.2-4.5); BILIRUBIN,TOTAL 0.9 MG/DL (0.1-1.0); CREATININE SERUM 0.74 MG/DL (0.60-1.30); POTASSIUM 4.4 MMOL/L (3.6-5.0); TOTAL PROTEIN 7.3 GM/DL (6.4-8.2)
== END ==
LOC: ONC 10:45 → EDSTATUS 15:14
PROVIDERS: ATTEND Internal Medicine Hematology & Oncology
DX: C50.412 Malignant neoplasm of upper-outer quadrant of left female breast (principal); I10 Essential (primary) hypertension; Z90.12 Acquired absence of left breast and nipple; Z98.890 Other specified postprocedural states; Z92.3 Personal history of irradiation
CPT/HCPCS: 80053; 85025; G0463; 99213

== ENCOUNTER → 2021-06-17 | Outpatient (CLI) | payer MEDICARE ==
--- NOTE | 2021-06-17 11:16 | Diagnostic Imaging Report ---
EXAMINATION: Digital mammogram bilateral diagnostic with CAD. INDICATION: Left breast cancer. COMPARISON: This study was compared to the prior exams of 06/16/2020, 09/28/2019, 03/12/2019, 03/09/2018, and 03/07/2017. PERSONAL HISTORY: By history, the patient underwent a lumpectomy on the left for carcinoma in October 2019. At this time, there are no current complaints. FINDINGS: The previous mammogram of 06/16/2020 noted post surgical changes involving the left breast, consistent with the patient's lumpectomy. There also appeared to be an oil cyst with calcification in this area. On this exam, the suspected oil cyst is again evident. The amount of calcification is perhaps somewhat greater than on the prior study. This finding still has a generally benign appearance. There is no primary or secondary sign of malignancy in the lumpectomy site. The fibroglandular tissue in both breasts is heterogeneously dense. When compared to the previous studies, there does not appear to have been any significant change other than the post surgical changes involving the left breast. There is no primary or secondary sign of malignancy noted. IMPRESSION: 1. The post surgical changes involving the left breast appear stable. I would recommend that a 6 month followup mammogram of the left breast be obtained for continued evaluation. 2. There is no evidence for malignancy involving the right breast. ACR BI-RADS Category 3: Probably benign findings. Result letter will be mailed to the patient. Note: At least 10% of breast cancer is not imaged by mammography. Dictated by: Dictated on workstation # [id number]
== END ==
LOC: RAD 08:29
PROVIDERS: ATTEND Internal Medicine Hematology & Oncology
DX: Z85.3 Personal history of malignant neoplasm of breast (principal); Z90.12 Acquired absence of left breast and nipple
CPT/HCPCS: 77066; G0279; 77062

== ENCOUNTER → 2021-08-11 | Outpatient (CLI) | payer MEDICARE ==
--- NOTE | 2021-08-11 15:25 | Diagnostic Imaging Report ---
PROCEDURE: Pelvic comp/transvaginal sonogram. TECHNIQUE: Complete transabdominal and transvaginal pelvic ultrasound was performed. In addition, limited pelvic Doppler was performed. INDICATION: Breast cancer. Patient with long-term use of aromatase inhibitor. Uterus is anteverted measuring 4.3 x 2.5 x 4.4 cm. Endometrium is 2 mm in thickness. No myometrial masses detected. Right ovary cannot be visualized due to bowel gas. Left ovary measures 1.7 x 0.7 x 1.3 cm. There is blood flow to the left ovary. No adnexal mass or free fluid is detected. IMPRESSION: Nonvisualized right ovary. The study is otherwise unremarkable. Dictated by: Dictated on workstation # [id number]
== END ==
LOC: RAD 14:30
PROVIDERS: ATTEND Obstetrics & Gynecology
DX: C50.919 Malignant neoplasm of unspecified site of unspecified female breast (principal); Z79.811 Long term (current) use of aromatase inhibitors
CPT/HCPCS: 76830; 76856

== ENCOUNTER → 2021-10-16 | Outpatient (CLI) | payer MEDICARE ==
[2021-10-16 09:52] LABS: BASOPHILS % (AUTO) 1 % (0-10); EOSINOPHILS # (AUTO) 0.1 10^3/uL (0.0-0.3); EOSINOPHILS % (AUTO) 1 % (0-10); HEMATOCRIT 43 % (35-52); HEMOGLOBIN 13.8 g/dL (11.5-16.0); LYMPHOCYTES # (AUTO) 2.1 10^3/uL (1.0-4.0); LYMPHOCYTES % (AUTO) 30 % (12-44); MEAN CORPUSCULAR HEMOGLOBIN 31 pg (25-34); MEAN CORPUSCULAR HGB CONC 32 g/dL (32-36); MEAN CORPUSCULAR VOLUME 95 fL (80-99); MEAN PLATELET VOLUME 10.4 fL (9.0-12.2); MONOCYTES # (AUTO) 0.5 10^3/uL (0.0-1.0); MONOCYTES % (AUTO) 6 % (0-12); NEUTROPHILS # (AUTO) 4.5 10^3/uL (1.8-7.8); NEUTROPHILS % (AUTO) 62 % (42-75); PLATELET COUNT 244 10^3/uL (130-400); WHITE BLOOD COUNT 7.2 10^3/uL (4.3-11.0)
[2021-10-16 10:12] LABS: ALBUMIN 4.3 GM/DL (3.2-4.5); CALCIUM 10.2 MG/DL (8.5-10.1); CREATININE SERUM 0.68 MG/DL (0.60-1.30); POTASSIUM 4.2 MMOL/L (3.6-5.0); TOTAL PROTEIN 7.2 GM/DL (6.4-8.2)
== END ==
LOC: ONC 09:42
PROVIDERS: ATTEND Internal Medicine Hematology & Oncology
DX: C50.412 Malignant neoplasm of upper-outer quadrant of left female breast (principal); I10 Essential (primary) hypertension; Z90.12 Acquired absence of left breast and nipple; Z92.3 Personal history of irradiation; Z98.890 Other specified postprocedural states
CPT/HCPCS: 80053; 85025; G0463; 36415; 99213

== ENCOUNTER → 2021-12-30 | Outpatient (CLI) | payer MEDICARE ==
--- NOTE | 2021-12-30 14:04 | Diagnostic Imaging Report ---
INDICATION: Left breast carcinoma. Correlation is made with prior mammogram from 06/17/2021 and 06/16/2020. Unilateral left 2-D and 3-D diagnostic mammography was performed with CAD. Post therapeutic changes left breast are noted. There are benign calcifications in left breast. No mass or malignant-appearing microcalcifications are seen. Left axilla is unremarkable. IMPRESSION: Stable post therapeutic changes. Continued followup in 6 months is recommended to show continued stability. ACR BI-RADS Category 3: Probably benign findings. Result letter will be mailed to the patient. Note: At least 10% of breast cancer is not imaged by mammography. BI-RADS Category 3 Dictated by: Dictated on workstation # [id number]
== END ==
LOC: RAD 12:30
PROVIDERS: ATTEND Internal Medicine Hematology & Oncology
DX: C50.412 Malignant neoplasm of upper-outer quadrant of left female breast (principal)
CPT/HCPCS: 77065; G0279

== ENCOUNTER → 2022-01-20 | Outpatient (CLI) | payer MEDICARE ==
[2022-01-20 10:06] LABS: BASOPHILS % (AUTO) 0 % (0-10); EOSINOPHILS # (AUTO) 0.1 10^3/uL (0.0-0.3); EOSINOPHILS % (AUTO) 1 % (0-10); HEMATOCRIT 42 % (35-52); HEMOGLOBIN 13.5 g/dL (11.5-16.0); LYMPHOCYTES # (AUTO) 2.3 10^3/uL (1.0-4.0); LYMPHOCYTES % (AUTO) 33 % (12-44); MEAN CORPUSCULAR HEMOGLOBIN 31 pg (25-34); MEAN CORPUSCULAR HGB CONC 32 g/dL (32-36); MEAN CORPUSCULAR VOLUME 96 fL (80-99); MEAN PLATELET VOLUME 10.6 fL (9.0-12.2); MONOCYTES # (AUTO) 0.3 10^3/uL (0.0-1.0); MONOCYTES % (AUTO) 5 % (0-12); NEUTROPHILS # (AUTO) 4.1 10^3/uL (1.8-7.8); NEUTROPHILS % (AUTO) 60 % (42-75); PLATELET COUNT 232 10^3/uL (130-400); WHITE BLOOD COUNT 6.8 10^3/uL (4.3-11.0)
[2022-01-20 10:40] LABS: ALBUMIN 4.2 GM/DL (3.2-4.5); CALCIUM 10.1 MG/DL (8.5-10.1); CREATININE SERUM 0.71 MG/DL (0.60-1.30); POTASSIUM 4.9 MMOL/L (3.6-5.0); TOTAL PROTEIN 6.9 GM/DL (6.4-8.2)
== END ==
LOC: ONC 09:14
PROVIDERS: ATTEND Internal Medicine Hematology & Oncology
DX: Z12.31 Encounter for screening mammogram for malignant neoplasm of breast (principal); D05.12 Intraductal carcinoma in situ of left breast; I10 Essential (primary) hypertension; Z90.12 Acquired absence of left breast and nipple; Z92.3 Personal history of irradiation
CPT/HCPCS: 80053; 85025; G0463; 36415; 99213

== ENCOUNTER → 2022-07-01 | Outpatient (CLI) | payer MEDICARE | LOC: LAB 08:32 | PROVIDERS: ATTEND Internal Medicine | DX: Z00.00 Encounter for general adult medical examination without abnormal findings (principal) | CPT/HCPCS: 36415; 80061; 84443 ==

== ENCOUNTER → 2022-07-01 | Outpatient (CLI) | payer MEDICARE ==
--- NOTE | 2022-07-01 09:41 | Diagnostic Imaging Report ---
Indication: Left left breast carcinoma, six-month follow-up. Correlation is made with prior mammogram 12/30/2021 and 06/17/2021. 2-D and 3-D bilateral diagnostic mammography was performed with CAD. CAD is utilized. The current study was also evaluated with a Computer Aided Detection (CAD) system. Scattered fibroglandular densities are identified bilaterally. There are postlumpectomy changes left breast. No mass or malignant-appearing microcalcifications are seen. There are benign calcifications noted. Axillae are unremarkable. IMPRESSION: BI-RADS Category 2 No mammographic features suspicious for malignancy are identified. ACR BI-RADS Category 2: Benign findings. Result letter will be mailed to the patient. Note: At least 10% of breast cancer is not imaged by mammography. Dictated by: Dictated on workstation # [id number]
== END ==
LOC: RAD 08:20
PROVIDERS: ATTEND Internal Medicine Hematology & Oncology
DX: C50.412 Malignant neoplasm of upper-outer quadrant of left female breast (principal)
CPT/HCPCS: 77066; G0279; 77062

== ENCOUNTER → 2022-07-01 | Outpatient (CLI) | payer MEDICARE ==
[2022-07-01 08:55] LABS: BASOPHILS % (AUTO) 1 % (0-10); EOSINOPHILS # (AUTO) 0.1 10^3/uL (0.0-0.3); EOSINOPHILS % (AUTO) 1 % (0-10); HEMATOCRIT 42 % (35-52); HEMOGLOBIN 13.5 g/dL (11.5-16.0); LYMPHOCYTES % (AUTO) 35 % (12-44); MEAN CORPUSCULAR HEMOGLOBIN 31 pg (25-34); MEAN CORPUSCULAR HGB CONC 32 g/dL (32-36); MEAN CORPUSCULAR VOLUME 95 fL (80-99); MEAN PLATELET VOLUME 10.9 fL (9.0-12.2); MONOCYTES # (AUTO) 0.3 10^3/uL (0.0-1.0); MONOCYTES % (AUTO) 5 % (0-12); NEUTROPHILS # (AUTO) 3.3 10^3/uL (1.8-7.8); NEUTROPHILS % (AUTO) 58 % (42-75); PLATELET COUNT 262 10^3/uL (130-400); WHITE BLOOD COUNT 5.7 10^3/uL (4.3-11.0)
[2022-07-01 09:18] LABS: ALBUMIN 4.4 GM/DL (3.2-4.5); BILIRUBIN,TOTAL 1.1 MG/DL (0.1-1.0); CALCIUM 9.4 MG/DL (8.5-10.1); CREATININE SERUM 0.69 MG/DL (0.60-1.30); POTASSIUM 3.5 MMOL/L (3.6-5.0); TOTAL PROTEIN 7.5 GM/DL (6.4-8.2)
== END ==
LOC: ONC 08:29
PROVIDERS: ATTEND Internal Medicine Hematology & Oncology
DX: C50.412 Malignant neoplasm of upper-outer quadrant of left female breast (principal); Z92.21 Personal history of antineoplastic chemotherapy; I10 Essential (primary) hypertension
CPT/HCPCS: 36415; 80053; 85025

== ENCOUNTER → 2022-08-05 | Outpatient (CLI) | payer MEDICARE | LOC: ONC 09:14 | PROVIDERS: ATTEND Internal Medicine Hematology & Oncology | DX: C50.419 Malignant neoplasm of upper-outer quadrant of unspecified female breast (principal); I10 Essential (primary) hypertension | CPT/HCPCS: 99213 ==

== ENCOUNTER 2022-08-18 05:53 | Outpatient (CLI) | payer MEDICARE ==
[~2022-08-18] VITALS: Ht 160 cm; Wt 54.4 kg
[2022-08-18] MEDS ORDERED: ANAS1TAB50 PO (12:15)
[2022-08-18] MEDS ORDERED: MULT-1036 PO (12:15)
== END 2022-08-18 12:22 | disposition home or self-care (01) ==
LOC: PREOP 05:53
PROVIDERS: ATTEND Surgery
DX: Z01.818 Encounter for other preprocedural examination (principal)

== ENCOUNTER 2022-08-25 09:50 | Day surgery (SDC) | payer MEDICARE ==
[~2022-08-25] VITALS: Ht 160 cm; Wt 54.4 kg
[~2022-08-25 09:50] MED LIST changes: +ANAS1TAB50 PO; +MULT-1036 PO
[2022-08-25] MEDS ORDERED: LACTATED RINGERS 1,000 ML IV STA (09:58)
[2022-08-25] MEDS ORDERED: LIDOCAINE JELLY 2% 6 ML SYRINGE MM PRN (10:00)
[2022-08-25 10:14] VITALS: BP 140/62
[2022-08-25] MEDS ORDERED: LIDOCAINE JELLY 2% 6 ML SYRINGE ONE (11:06)
--- NOTE | 2022-08-25 11:25 | Progress Note-Pre Operative ---
Pre-Operative Progress Note Date of Available H&P: Aug 25, 2022 Date H&P Reviewed: Aug 25, 2022 Time H&P Reviewed: 10:30 History & Physical: No changes noted Pre-Operative Diagnosis: screening o TERRANCE NOLASCO MD Aug 25, 2022 11:25
--- NOTE | 2022-08-25 11:26 | Discharge Inst-Surgical ---
D/C Lap Instructions-CONSTANCE Follow Up Activity as tolerated High Fiber Diet 25g or more per day Avoid Alcohol, Caffeine, Spicy [place] and Acid foods. Drink 64 fluid oz or more of fluids per day. Symptoms to Report: Fever over 101 degree F, Nausea/Vomiting If any problems/questions: Contact your physician or go to Emergency Room TERRANCE NOLASCO MD Aug 25, 2022 11:26
[2022-08-25] MEDS ORDERED: ONDANSETRON 4 MG (ZOFRAN) ORAL DISSOLVE TAB PO PRN (11:30)
[2022-08-25] MEDS ORDERED: ONDANSETRON 4 MG/2 ML (SDV) Z0FRAN IVP PRN (11:30)
[2022-08-25] MEDS ORDERED: PROPOFOL INJECTION 50 ML IV ONE (11:48)
[2022-08-25 12:15] VITALS: BP 103/47
[2022-08-25 12:20] VITALS: BP 101/47
--- NOTE | 2022-08-25 12:27 | Anesthesia-General Post-Op ---
MAC Patient Condition Mental Status/LOC: Same as Preop Cardiovascular: Satisfactory Nausea/Vomiting: Absent Respiratory: Satisfactory Pain: Controlled Complications: Absent Post Op Complications Complications None Follow Up Care/Instructions Patient Instructions None needed. Anesthesiology Discharge Order Discharge Order Patient is doing well, no complaints, stable vital signs, no apparent adverse anesthesia problems. No complications reported per nursing. RENEE BELTRAN DO Aug 25, 2022 12:27
--- NOTE | 2022-08-25 12:33 | Progress Note-Post Operative ---
Post-Operative Progess Note Surgeon (s)/Sieve Grader Tender (s) Surgeon TERRANCE NOLASCO MD Sieve Grader Tender: none Pre-Operative Diagnosis screening colo Post-Operative Diagnosis mild chronic stage 2 ext and int hemorrhoids. Procedure & Operative Findings Date of Procedure 08/25/22 Procedure Performed/Findings colonoscopy Anesthesia Type mac Estimated Blood Loss Estimated blood loss (mL): minimal Specimens/Packing Specimens Removed none TERRANCE NOLASCO MD Aug 25, 2022 12:33
[2022-08-25 12:40] VITALS: BP 108/45
[2022-08-25 12:50] VITALS: BP 108/45
--- NOTE | 2022-08-25 16:35 | OPERATIVE REPORT ---
DATE OF SERVICE: 08/25/2022 ATTENDING PRIMARY CARE PHYSICIAN: Jimmy Adams MD PREOPERATIVE DIAGNOSIS: Screening colonoscopy. POSTOPERATIVE DIAGNOSIS: Mild chronic stage II, external and internal hemorrhoids. PROCEDURE: Colonoscopy. SURGEON: Terrance Nolasco MD ANESTHESIA: Monitored anesthesia care. ESTIMATED BLOOD LOSS: Minimal. FINDINGS: Mild chronic stage II, external and internal hemorrhoids. DISPOSITION: The patient tolerated the procedure well. INDICATIONS: The patient is a 72-year-old female in need of a screening colonoscopy. Her last one was in 2010 and this was normal. There were no polyps identified. She is otherwise doing well, does not report any major issues with diarrhea, nor constipation as well as no red blood per rectum, nor any dark tarry stools. She only has a remote family history of colon cancer with her grandmother having the disease. No first-degree relatives. DESCRIPTION OF PROCEDURE: The patient was brought to the endoscopy suite and laid in the left lateral decubitus position. After adequate IV pain and sedative medications and monitored anesthesia care, a digital rectal examination was performed which revealed chronic stage II, external and internal hemorrhoids, not actively edematous nor inflamed and no bleeding. Normal sphincter tone was felt and there were no palpable masses. The endoscope was then intubated into the anus, rectum gently insufflated. The endoscope was then advanced through the valves of [place] of the rectum with no polyps or any neoplasms identified. Through the sigmoid colon, no diverticulosis identified. The endoscope was then advanced through the remainder of the descending, transverse and ascending colon to the cecum, which were normal. There were no polyps or any neoplasms identified throughout the colon or rectum. The endoscope was then slowly withdrawn while taking a second look and suctioning of residual air with no additional findings. The patient tolerated the procedure well. We will recommend continued medical management with a high-fiber diet with at least 25 grams of fiber daily to promote soft consistency stools on a daily basis. She is asymptomatic, she does not need another colonoscopy for another 10 years. Job ID: [id number] DocumentID: [id number] Dictated Date: 08/25/2022 12:24:29 Auto Brake Technician Date: 08/25/2022 16:35:00 Dictated By: TERRANCE NOLASCO MD
== END 2022-08-25 12:50 | disposition home or self-care (01) ==
LOC: ENDO 09:50
PROVIDERS: ATTEND Surgery
DX: Z12.11 Encounter for screening for malignant neoplasm of colon (principal); K64.1 Second degree hemorrhoids; K64.4 Residual hemorrhoidal skin tags; Z80.0 Family history of malignant neoplasm of digestive organs; Z85.3 Personal history of malignant neoplasm of breast